=== PATIENT | female | born 1935 | race Two or more races ===

== ENCOUNTER 2018-12-07 11:42 | Emergency (ER) | payer MEDICARE, MEDICAID ==
[~2018-12-07] VITALS: Ht 152.4 cm; Wt 81.6 kg
[2018-12-07 12:00] VITALS: BP 143/70
[2018-12-07] MEDS ORDERED: METHOCARBAMOL 500 MG TAB PO ONE (15:30)
[2018-12-07] MEDS ORDERED: KETOROLAC TROMETH 30 MG/ML 1ML VIAL IM ONE (15:30)
== END 2018-12-07 16:02 | disposition home or self-care (01) ==
LOC: ER 11:42
DX: M54.5 Low back pain (principal); R22.42 Localized swelling, mass and lump, left lower limb; I10 Essential (primary) hypertension; Z87.442 Personal history of urinary calculi
CPT/HCPCS: 93005; 96372; 99283; J1885

== ENCOUNTER 2021-11-12 09:01 | Emergency (ER) | payer MEDICARE, MEDICAID ==
[~2021-11-12] VITALS: Ht 154.9 cm; Wt 86.8 kg
[2021-11-12 09:23] VITALS: BP 180/92
[2021-11-12 10:50] LABS: Urine Bacteria FEW /hpf (None Seen); Urine Blood Negative /uL (Negative); Urine Mucus FEW (None Seen); Urine Specific Gravity 1.022 (1.001-1.035); Urine WBC 6 /hpf (0 - 5)
[2021-11-12] MEDS ORDERED: NITR-87 PO (12:29)
== END 2021-11-12 14:45 | disposition home or self-care (01) ==
LOC: ER 09:01
DX: S46.911A Strain of unspecified muscle, fascia and tendon at shoulder and upper arm level, right arm, initial encounter (principal); S76.011A Strain of muscle, fascia and tendon of right hip, initial encounter; K80.80 Other cholelithiasis without obstruction; N39.0 Urinary tract infection, site not specified; I10 Essential (primary) hypertension; W18.39XA Other fall on same level, initial encounter; Y93.89 Activity, other specified; Y92.89 Other specified places as the place of occurrence of the external cause; Y99.8 Other external cause status
CPT/HCPCS: 70450; 72192; 73030; 81001

== ENCOUNTER 2024-08-26 22:36 | Inpatient (IN) | payer MEDICARE, MEDICAID ==
[~2024-08-26] VITALS: Ht 144.8 cm; Wt 71.3 kg
[~2024-08-26 22:36] MED LIST: NITR-87 PO
[2024-08-27] VITALS (9 sets, daily range): BP systolic 119–169; BP diastolic 57–95; PULSE 54–76; RESP 16–19; TEMP 97.3–97.7; O2SAT 94–97
[2024-08-27] LABS: Basophils # (auto) 0.1 10 ^3/uL (0-0.2); Basophils % (auto) 0.7 % (0.0-2.0); Eosinophils # (auto) 0.1 10 ^3/uL (0-0.8); Eosinophils % (auto) 0.7 % (0.0-7.0); Hematocrit 43.6 % (36.0-46.0); Hemoglobin 14.6 g/dL (12.2-16.2); Lymphocytes # (auto) 1.4 10 ^3/uL (0.4-5.4); Lymphocytes % (auto) 17.7 % (10.0-50.0); Mean Corpuscular Hemoglobin 31.4 pg (28.0-32.0); Mean Corpuscular Hgb Conc. 33.5 g/dL (32.0-36.0); Mean Corpuscular Volume 93.8 fL (80.0-100.0); Monocytes # (auto) 0.5 10 ^3/uL (0-1.3); Monocytes % (auto) 5.7 % (0.0-12.0); Neutrophils % (auto) 75.2 % (37.0-80.0); Platelet Count (auto) 197 10^3/uL (140-450); Red Blood Cells 4.65 10^6/uL (4.0-5.20); Red Cell Distribution Width 13.9 % (11.8-14.3)
--- NOTE | 2024-08-27 00:11 | ED.PDOC ---
History of Present Illness HPI Comments 89-year-old female came to ER due to dizziness. Patient has a history of hypertension. States for the past 3 days she has been having intermittent episodes of frontal headaches, dizziness, and left shoulder pains. Patient took meclizine for the dizziness but offered temporary relief. She denies any acute chest pains or shortness a breath. Blood sugar upon arrival was 147, with a blood pressure of 157/79 mm Hg Chief Complaint: Dizziness Time Seen by MD: 00:10 Primary Care Provider: TRIP Reviewed Notes: Nurses Notes Allergies: Coded Allergies: NO KNOWN ALLERGIES (Unverified , 12/07/18) Home Meds Active Scripts Nitrofurantoin Monohydrate Mac (Macrobid) 100 Mg Cap, 100 MG PO BID for 7 Days, #14 CAP Prov:FLOR LAYTON MD 11/12/21 Information Source: Patient Mode of Arrival: Wheelchair Severity: Moderate Timing: Days Duration: Intermittent Review of Systems REVIEW OF SYSTEMS: No fever, no chills, or fatigue HEENT: No sore throat, no earache, no congestion, no neck pain. Cardiac: No chest pain. No palpitations. Lungs: No shortness of breath, no cough. GI: No nausea, no vomiting, no diarrhea, no constipation, no abdominal pain : No dysuria, frequency, or urgency. No hematuria. Musculoskeletal: No joint pain , no joint swelling, no extremity edema. Skin: No rash, no itching. Neuro: (+) headache, (+) dizziness, no weakness Vital Signs Vital Signs Date Time Temp Pulse Resp B/P (MAP) Pulse Ox O2 Delivery O2 Flow Rate FiO2 08/27/24 00:30 Room Air* 0 21 08/27/24 00:11 71 08/27/24 00:05 98.8 13 157/79 (105) 96 98.8 Physical Exam General: Awake, alert and oriented. No acute distress. Skin: Skin in warm, dry and intact. Appropriate color for ethnicity. Nailbeds pink with no cyanosis. HEENT: The head is normocephalic and atraumatic. Conjunctivae are clear without exudates or hemorrhage. Sclera is non-icteric. EOM are intact. No signs of nystagmus. Eyelids are normal in appearance without swelling or lesions. Oral mucosa is pink and moist Neck: The neck is supple with normal range of motion. No JVD. Cardiac: Heart rate and rhythm are normal. Systolic murmur auscultated loudest over the aortic area Respiratory: No signs of respiratory distress. Lung sounds are clear in all lobes bilaterally without rales, rhonchi, or wheezes. Abdominal: Abdomen is soft, non-tender without distention. Bowel sounds are present and normoactive in all four quadrants. Extremities: Upper and lower extremities are atraumatic in appearance without deformity or edema. Neurological: The patient is awake, alert , there is a generalized tremor noted. Speech is clear. There is no facial asymmetry. Generalized weakness. Strength 4/5 Psychiatric: Appropriate mood and affect. Good judgement and insight. Past Medical History PAST MEDICAL HISTORY: HTN Surgical History: Denies all surgeries ADMISSIONS CONSULTANT History: No Pertinent ADMISSIONS CONSULTANT History Family History Family History: Reviewed,noncontributory to illness Social History Smoker: Non-Smoker Alcohol: Denies ETOH Use Drugs: Denies Drug Use Lives In: Home Was a procedure done? Was a procedure done?: No EKG EKG : Pulse Rate (adult): 71 Cardiac Rhythm: NSR Hypertrophy: LAE Differential Dx Considerations may include: Anemia, electrolyte imbalance, dizziness, headaches, hypovolemia, UTI, neurologic disorder, CVA, vertigo, other X-Ray, Labs, Meds, VS Vital Signs Date Time Temp Pulse Resp B/P (MAP) Pulse Ox O2 Delivery O2 Flow Rate FiO2 08/27/24 00:30 Room Air* 0 21 08/27/24 00:11 71 08/27/24 00:05 98.8 78 13 157/79 (105) 96 98.8 08/26/24 23:10 98.8 78 13 157/79 (105) 96 98.8 Lab Test 08/26/24 23:50 08/26/24 23:28 Range/Units White Blood Count 8.0 4.4-10.8 10^3/uL Red Blood Count 4.65 4.0-5.20 10^6/uL Hemoglobin 14.6 12.2-16.2 g/dL Hematocrit 43.6 36.0-46.0 % Mean Corpuscular Volume 93.8 80.0-100.0 fL Mean Corpuscular Hemoglobin 31.4 28.0-32.0 pg Mean Corpuscular Hemoglobin Concent 33.5 32.0-36.0 g/dL Red Cell Distribution Width 13.9 11.8-14.3 % Platelet Count 197 140-450 10^3/uL Mean Platelet Volume 8.6 6.9-10.8 fL Neutrophils (%) (Auto) 75.2 37.0-80.0 % Lymphocytes (%) (Auto) 17.7 10.0-50.0 % Monocytes (%) (Auto) 5.7 0.0-12.0 % Eosinophils (%) (Auto) 0.7 0.0-7.0 % Basophils (%) (Auto) 0.7 0.0-2.0 % Neutrophils # (Auto) 6.0 1.6-8.6 10 ^3/uL Lymphocytes # (Auto) 1.4 0.4-5.4 10 ^3/uL Monocytes # (Auto) 0.5 0-1.3 10 ^3/uL Eosinophils # (Auto) 0.1 0-0.8 10 ^3/uL Basophils # (Auto) 0.1 0-0.2 10 ^3/uL Nucleated Red Blood Cells 0.0 % Sodium Level 144 136-145 mmol/L Potassium Level 3.8 3.5-5.1 mmol/L Chloride Level 112 H 98-107 mmol/L Carbon Dioxide Level 22 20-31 mmol/L Anion Gap 10 5-15 Blood Urea Nitrogen 21 9-23 mg/dL Creatinine 0.67 0.550-1.02 mg/dL Glomerular Filtration Rate Calc 85 >90 mL/min BUN/Creatinine Ratio 31.3 H 10.0-20.0 Serum Glucose 139 H 74-106 mg/dL Hemoglobin A1c 5.5 <5.7 % A1C Calcium Level 9.0 8.7-10.4 mg/dL Total Bilirubin 0.4 0.2-1.0 mg/dL Aspartate Amino Transferase (AST) 11 L 13-40 U/L Alanine Aminotransferase (ALT) < 9 7-40 U/L Alkaline Phosphatase 68 46-116 U/L Troponin I High Sensitivity 26 </=34 ng/L B-Type Natriuretic Peptide 570.42 0-100 pg/mL Total Protein 6.7 5.7-8.2 g/dL Albumin 4.1 3.2-4.8 g/dL Vitamin B12 Level 371 211-911 pg/mL Folic Acid 6.72 >5.38 ng/mL Thyroid Stimulating Hormone (TSH) 1.39 0.55-4.78 uIU/mL POC Glucose 147 H 70-106 mg/dl Current Medications Medications (Trade) Dose Ordered Sig/Aidee Route Start Time Stop Time Status Last Admin Acetaminophen (Ofirmev) 1,000 mg ONCE ONCE IV 08/26/24 23:45 08/26/24 23:46 DC 08/27/24 00:39 Sodium Chloride 1,000 ml @ 1,000 mls/hr Q1H ONCE IV 08/26/24 23:45 08/27/24 00:44 DC 08/27/24 00:39 CT HEAD WITHOUT CONTRAST INDICATION: Severe headache +dizziness COMPARISON: CT head 11/12/2021 TECHNIQUE: CT of the head without intravenous contrast. RADIATION DOSE: CTDIvol: mGy, DLP: mGy*cm FINDINGS: There is no evidence of intracranial hemorrhage, acute infarct, extra-axial collection, mass effect, midline shift, herniation or hydrocephalus. 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 Prominent sulcal enlargement in the frontal and temporal lobes and vbir-ei-apliobri ventricular enlargement, stable compared to the prior CT scan from October 2021 and related to advanced cerebral volume loss. Visualized paranasal sinuses and mastoid air cells are clear. Soft tissues and osseous structures are unremarkable. IMPRESSION: No acute intracranial abnormality identified. CHEST RADIOGRAPH Indication: cp Technique: Single frontal view of the chest was obtained COMPARISON: None FINDINGS: Lines and Tubes: None Lungs: Clear. Pleura: No effusion. No pneumothorax. Cardiomediastinal contours: Moderate cardiomegaly. IMPRESSION: Moderate cardiomegaly. Time of 1ST Reevaluation: 00:04 Reevaluation 1ST: Unchanged Patient Education/Counseling: Diagnosis, Treatment Family Education/Counseling: Diagnosis, Treatment Departure 1 Departure Time of Disposition: 02:06 Impression: Primary Impression: Dizziness Additional Impressions: Headache Hypertension Generalized weakness Disposition: ADMITTED INPATIENT Condition: Stable Comments Patient admitted to hospitalist service for further treatment, evaluation and monitoring. Critical Care Note Critical Care Time?: No Stability Stability form required: No Heart Score Heart Score: Heart Score Response (Comments) Value History N/A 0 EKG N/A 0 Age N/A 0 Risk Factors N/A 0 Troponin N/A 0 Total 0 I personally scribed for JONY MAHMOOD MD ([email or web address]) on 08/27/24 at 00:11. Electronically submitted by Marco Antonio Stevenson ([email or web address]). I personally scribed for JONY MAHMOOD MD ([email or web address]) on 08/27/24 at 01:26. Electronically submitted by Marco Antonio Stevenson ([email or web address]). JONY MAHMOOD MD August 27, 2024 00:11
[2024-08-27 00:19] LABS: Albumin 4.1 g/dL (3.2-4.8); Alkaline Phosphatase 68 U/L (46-116); Anion Gap 10 (5-15); BUN/Creatinine Ratio 31.3 (10.0-20.0); Blood Urea Nitrogen 21 mg/dL (9-23); Carbon Dioxide 22 mmol/L (20-31); Potassium 3.8 mmol/L (3.5-5.1); Sodium 144 mmol/L (136-145); Total Protein 6.7 g/dL (5.7-8.2)
[2024-08-27 00:20] LABS: Bilirubin, Total 0.4 mg/dL (0.2-1.0)
[2024-08-27 00:24] LABS: Alanine Aminotransferase < 9 U/L (7-40); Aspartate Aminotransferase 11 U/L (13-40); Chloride 112 mmol/L (98-107); Glucose 139 mg/dL (74-106)
--- NOTE | 2024-08-27 00:29 | DVH ---
CT HEAD WITHOUT CONTRAST INDICATION: Severe headache +dizziness COMPARISON: CT head 11/12/2021 TECHNIQUE: CT of the head without intravenous contrast. RADIATION DOSE: CTDIvol: mGy, DLP: mGy*cm FINDINGS: There is no evidence of intracranial hemorrhage, acute infarct, extra-axial collection, mass effect, midline shift, herniation or hydrocephalus. Evidence of small old lacunar infarcts in bilateral thal amus and mild chronic white matter microvascular ischemic change. Prominent sulcal enlargement in the frontal and temporal lobes and wdil-uf-mjiugqgo ventricular enlargement, stable compared to the prio r CT scan from October 2021 and related to advanced cerebral volume loss. Visualized paranasal sinuses a nd mastoid air cells are clear. Soft tissues and osseous structures are unremarkable. IMPRESSION: No acute intracranial abnormality identified.
--- NOTE | 2024-08-27 00:33 | DVH ---
CHEST RADIOGRAPH Indication: cp Technique: Single frontal view of the chest was obtained COMPARISON: None FINDINGS: Lines and Tubes: None Lungs: Clear. Pleura: No effusion. No pneumothorax. Cardiomediastinal contours: Moderate cardiomegaly. IMPRESSION: Moderate cardiomegaly.
[2024-08-27] MEDS: SODIUM CHLORIDE 0.9% 1,000 ML IV ONE ×2 (00:39→12:22)
[2024-08-27] MEDS: ACETAMINOPHEN IV 1000 MG/100ML (10MG/ML) IV ONE (00:39)
[2024-08-27] MEDS ORDERED: NITROGLYCERIN 0.4 MG SL TAB SL PRN (02:30)
[2024-08-27] MEDS ORDERED: ONDANSETRON HCL 4 MG/2 ML VIAL IV PRN (02:30)
[2024-08-27] MEDS ORDERED: PANTOPRAZOLE 40 MG TAB PO ONE (02:30)
[2024-08-27] MEDS ORDERED: DOCUSATE SOD 100 MG CAP PO PRN (02:30)
[2024-08-27] MEDS ORDERED: MORPHINE SULFATE INJ 2 MG/ml SYRG IV PRN (02:30)
--- NOTE | 2024-08-27 02:55 | DVHHP2 ---
History of Present Illness History of Present Illness Patient is 89 years old female with past medical hypertension came with a complaint of dizziness. As per patient and her grandson patient has been having dizzy for last 1 month but which got worse for last almost 7 days. Dizziness is worsened when moving around or walking around. Dizziness was associated with a headache, 10/10, pulsatile in nature. Patient also endorsed chronic bilateral leg swelling for years. Patient was taking meclizine but did not help. Patient denied any dysarthria or change in vision or hemiparesis chest pain no shortness a breath acute joint pain or redness or diarrhea or vomiting. BNP 570, CT head negative for acute intracranial abnormality. Chest x-ray no acute abnormality noted. Negative for COVID-19 and influenza type a and B. HH 1.39, HGB A1c 5.5. PCP Dr. Khadar peguero Past Medical History Hypertension Family History Patient could not provide details of the family history Past Social History Lives with daughter, denies smoking/alcoholism/drug abuse Home meds lisinopril, amlodipine, meclizine Review of Systems Review of Systems Allergy-NKDA Patient was seen today at the bedside. Cardiovascular- deny acute chest pain or shortness of breath or cough or palpitation Respiratory denies cough or short of breath or wheezing Gastrointestinal- denies any rectal bleeding, nausea or vomiting Musculoskeletal-denies acute joint swelling or tenderness or redness Neurological- denies acute dysarthria, dysphagia, change in vision Psychiatry- denies depression or SI or HI Skin- denies acute rash or purpura Allergies: Coded Allergies: NO KNOWN ALLERGIES (Unverified , 12/07/18) Medications Current Medications Medications Dose Ordered Sig/Aidee Route Start Time Stop Time Status Last Admin Dose Admin Sodium Chloride 10 ml Q8HR IV 08/27/24 06:00 Ondansetron HCl 4 mg Q4HP PRN IV 08/27/24 02:30 Docusate Sodium 100 mg BIDPRN PRN PO 08/27/24 02:30 Enoxaparin Sodium 40 mg DAILY SC 08/27/24 10:00 Acetaminophen 650 mg Q6HP PRN PO 08/27/24 02:30 Morphine Sulfate 2 mg Q4HPRN PRN IV 08/27/24 02:30 Nitroglycerin 0.4 mg Q5MINP PRN SL 08/27/24 02:30 Morphine Sulfate 2 mg Q30M PRN IV 08/27/24 02:30 Aspirin 81 mg DAILY PO 08/27/24 10:00 Atorvastatin Calcium 40 mg HS PO 08/27/24 22:00 Pantoprazole Sodium 40 mg DAILY@0600 PO 08/27/24 06:00 Exam Vital Signs Vital Signs Date Time Temp Pulse Resp B/P (MAP) Pulse Ox O2 Delivery O2 Flow Rate FiO2 08/27/24 00:30 Room Air* 0 21 08/27/24 00:11 71 08/27/24 00:05 98.8 13 157/79 (105) 96 98.8 Exam General examination- awake, alert, oriented HEENT- PEERLA, no acute nasal discharge Cardiovascular- S1-S2 audible, rate and rhythm regular, systolic murmur radiating to the neck Respiratory- CTAB, no wheeze or rhonchi Gastrointestinal-nontender, bowel sound+. Nondistended Musculoskeletal-no acute joint swelling or tenderness or redness Lower extremity- + bilateral leg edema Neurological- cranial nerves intact, no acute dysarthria or dysphagia Psychiatry- denies depression or SI or HI Skin- no acute rash or purpura Labs/Xrays Labs Test 08/26/24 23:50 08/26/24 23:28 Range/Units White Blood Count 8.0 4.4-10.8 10^3/uL Red Blood Count 4.65 4.0-5.20 10^6/uL Hemoglobin 14.6 12.2-16.2 g/dL Hematocrit 43.6 36.0-46.0 % Mean Corpuscular Volume 93.8 80.0-100.0 fL Mean Corpuscular Hemoglobin 31.4 28.0-32.0 pg Mean Corpuscular Hemoglobin Concent 33.5 32.0-36.0 g/dL Red Cell Distribution Width 13.9 11.8-14.3 % Platelet Count 197 140-450 10^3/uL Mean Platelet Volume 8.6 6.9-10.8 fL Neutrophils (%) (Auto) 75.2 37.0-80.0 % Lymphocytes (%) (Auto) 17.7 10.0-50.0 % Monocytes (%) (Auto) 5.7 0.0-12.0 % Eosinophils (%) (Auto) 0.7 0.0-7.0 % Basophils (%) (Auto) 0.7 0.0-2.0 % Neutrophils # (Auto) 6.0 1.6-8.6 10 ^3/uL Lymphocytes # (Auto) 1.4 0.4-5.4 10 ^3/uL Monocytes # (Auto) 0.5 0-1.3 10 ^3/uL Eosinophils # (Auto) 0.1 0-0.8 10 ^3/uL Basophils # (Auto) 0.1 0-0.2 10 ^3/uL Nucleated Red Blood Cells 0.0 % Sodium Level 144 136-145 mmol/L Potassium Level 3.8 3.5-5.1 mmol/L Chloride Level 112 H 98-107 mmol/L Carbon Dioxide Level 22 20-31 mmol/L Anion Gap 10 5-15 Blood Urea Nitrogen 21 9-23 mg/dL Creatinine 0.67 0.550-1.02 mg/dL Glomerular Filtration Rate Calc 85 >90 mL/min BUN/Creatinine Ratio 31.3 H 10.0-20.0 Serum Glucose 139 H 74-106 mg/dL Calcium Level 9.0 8.7-10.4 mg/dL Total Bilirubin 0.4 0.2-1.0 mg/dL Aspartate Amino Transferase (AST) 11 L 13-40 U/L Alanine Aminotransferase (ALT) < 9 7-40 U/L Alkaline Phosphatase 68 46-116 U/L Troponin I High Sensitivity 26 </=34 ng/L B-Type Natriuretic Peptide 570.42 0-100 pg/mL Total Protein 6.7 5.7-8.2 g/dL Albumin 4.1 3.2-4.8 g/dL POC Glucose 147 H 70-106 mg/dl Assessment/Plan Assessment/Plan Assessment and plan Acute dizziness headache, rule out acute stroke Ruled out Cardiac arrhythmia Rule out Orthostatic hypotension or hypoglycemia or BPPV Heart failure systolic versus diastolic-BNP [address] head negative for acute intracranial abnormality Chest x-ray no acute abnormality Plan Ordered aspirin 81 mg p.o. daily Ordered atorvastatin 40 mg p.o. q.h.s. Ordered MRI of the brain to rule out acute stroke Ordered Carotid Doppler Ordered Echo 2D Ordered Orthostatic vitals Ordered neurology consult for further evaluation and care PCP Dr. Khadar peguero Goals of care, Code status ; discussed with >15 minutes PUD prophylaxis: Pantoprazole DVT prophylaxis: Lovenox Plan discussed with Dr. Forte , nursing staff, Total time spent on patient evaluation, chart review, assessment and plan, discussion discussion >35 minutes Plan discussed with: Patient, Other ( grand Son, RN) My Orders Orders - [facility] RES[facility] Procedure Category Date Status Time Admit ADMIT 08/27/24 Transmitted 02:21 Code Status CODE 08/27/24 Transmitted 02:21 Sodium Chloride Lock PHA 08/27/24 In Process (Saline Lock Ns) 06:00 Ondansetron Hcl PHA 08/27/24 In Process (Zofran) 02:30 Docusate Sodium PHA 08/27/24 In Process Capsule (Colace 02:30 Enoxaparin Sodium PHA 08/27/24 In Process (Lovenox) 10:00 Complete Blood Count LAB 08/28/24 Verified 04:00 Comprehensive LAB 08/28/24 Verified Metabolic Panel 04:00 Echo 2d Mode Cardiac US 08/27/24 Logged DOP 02:21 Acetaminophen Tablet PHA 08/27/24 In Process (Tylenol Tablet) 02:30 Morphine Sulfate PHA 08/27/24 In Process Injection 02:30 Nitroglycerin PHA 08/27/24 In Process Sublingual (Ntrostat 02:30 Morphine Sulfate PHA 08/27/24 In Process Injection 02:30 Oxygen By Nasal RT 08/27/24 Transmitted Cannula 02:21 Stat Ekg For Chest JOSIAS 08/27/24 In Process Pain 02:21 Notify Of Changes JOSIAS 08/27/24 In Process From Base 02:21 Police Judge For JOSIAS 08/27/24 In Process 24 Hours 02:21 Emergency Dysrhythmia JOSIAS 08/27/24 In Process Protocol 02:21 Rhythm Strips Once JOSIAS 08/27/24 In Process Every Shift 02:21 Aspirin Tablet PHA 08/27/24 In Process 10:00 Atorvastatin (Lipitor) PHA 08/27/24 In Process 22:00 Pantoprazole Tablet PHA 08/27/24 In Process (Protonix Tablet) 06:00 Orthostatic Vital ORDERS 08/27/24 Transmitted Signs 02:29 Drug Screen LAB 08/27/24 Logged 02:29 Thyroid Stimulating LAB 08/27/24 In Process Hormone 02:29 Brain Head Wo Contrast MRI 08/27/24 Transmitted 02:45 Carotid Duplx W Color US 08/27/24 Transmitted DOP 02:45 Date of Service: August 27, 2024 Billing Provider: MILLIE FORTE MD Common Visit Codes: [id number] INP/OBS CARE (HIGH) Secondary Visit Codes: [id number] CARE PLAN 30 MINUTES [facility] RES[facility] August 27, 2024 02:55
[2024-08-27] MEDS ORDERED: hydrALAZINE HCL 20 MG/ML VL IV PRN (03:00)
[2024-08-27] MEDS: ASPirin 81 mg TAB PO ONE (03:16)
[2024-08-27] MEDS: ATORVASTATIN 20 MG TAB PO ONE (03:18)
[2024-08-27 03:27] LABS: Folate (Folic Acid) 6.72 ng/mL (>5.38)
[2024-08-27 05:05] LABS: COVID19 ANTIGEN SOFIA FIA NEGATIVE (NEGATIVE); Rapid Influenza A Negative (Negative); Rapid Influenza B Negative (Negative)
[2024-08-27] MEDS: PANTOPRAZOLE 40 MG TAB PO SCH (06:52)
[2024-08-27] MEDS: SODIUM CHLOR 0.9% PF (SALINE LOCK) 10ML VIAL/SYR IV SCH (06:52)
[2024-08-27 08:38] LABS: Basophils # (auto) 0 10 ^3/uL (0-0.2); Basophils % (auto) 0.3 % (0.0-2.0); Eosinophils # (auto) 0.1 10 ^3/uL (0-0.8); Eosinophils % (auto) 1.3 % (0.0-7.0); Hematocrit 38.9 % (36.0-46.0); Hemoglobin 13.1 g/dL (12.2-16.2); Lymphocytes # (auto) 1.8 10 ^3/uL (0.4-5.4); Mean Corpuscular Hemoglobin 31.5 pg (28.0-32.0); Mean Corpuscular Hgb Conc. 33.6 g/dL (32.0-36.0); Mean Corpuscular Volume 93.7 fL (80.0-100.0); Monocytes # (auto) 0.4 10 ^3/uL (0-1.3); Monocytes % (auto) 5.8 % (0.0-12.0); Neutrophils # (auto) 4.5 10 ^3/uL (1.6-8.6); Neutrophils % (auto) 66.6 % (37.0-80.0); Nucleated Red Blood Cells % 0.1 %; Platelet Count (auto) 189 10^3/uL (140-450); Red Blood Cells 4.15 10^6/uL (4.0-5.20); Red Cell Distribution Width 13.5 % (11.8-14.3); White Blood Cell 6.8 10^3/uL (4.4-10.8)
[2024-08-27] MEDS: CYANOCOBALAMIN (B-12) 1000 MCG/1 ML VIAL IM ONE (08:50)
[2024-08-27] MEDS: ASPirin 81 mg TAB PO SCH (08:50)
[2024-08-27] MEDS: ENOXAPARIN SOD 40 MG/0.4 ML SYRINGE SC SCH (08:51)
[2024-08-27 08:53] LABS: Albumin 3.5 g/dL (3.2-4.8); Alkaline Phosphatase 60 U/L (46-116); Anion Gap 9 (5-15); BUN/Creatinine Ratio 35.8 (10.0-20.0); Bilirubin, Total 0.5 mg/dL (0.2-1.0); Blood Urea Nitrogen 19 mg/dL (9-23); Calcium 9.2 mg/dL (8.7-10.4); Carbon Dioxide 22 mmol/L (20-31); Glucose 101 mg/dL (74-106); Magnesium 1.9 mg/dL (1.6-2.6); Potassium 3.8 mmol/L (3.5-5.1); Sodium 144 mmol/L (136-145)
[2024-08-27 08:59] LABS: Alanine Aminotransferase < 9 U/L (7-40); Aspartate Aminotransferase 13 U/L (13-40); Chloride 113 mmol/L (98-107)
--- NOTE | 2024-08-27 11:06 | DVH ---
Carotid Duplex Date: 08/27/2024 08:16 AM Clinical History: HEADACHE WITH DIZZINESS, Comparison: None Technique: Duplex Doppler evaluation of the extracranial carotid and vertebral arteries including col or Doppler and spectral/pulsed waveform analysis was performed. Findings: Velocities and ratios within normal limits IMPRESSION: No hemodynamically significant stenosis noted in the right carotid system. No hemodynamically significant stenosis noted in the left carotid system. Reference: Radiology 2003; 229:[id number]
[2024-08-27] MEDS ORDERED: MECLIZINE HCL 25 MG TAB PO PRN (11:45)
[2024-08-27 11:50] LABS: Urine Bacteria None Seen /hpf (None Seen)
[2024-08-27 12:01] LABS: Urine Blood Negative /uL (Negative); Urine Clarity Clear (Clear); Urine Color Light-Yellow (Yellow); Urine Protein, UAD Negative (Negative); Urine Specific Gravity 1.025 (1.001-1.035); Urine Squamous Epithelial Cell FEW /hpf (<5); Urine Urobilinogen Normal (Negative); Urine WBC 2 /HPF (0-5); Urine pH 5.5 (5.0-9.0)
[2024-08-27 12:18] LABS: Amphetamine Screen, Urine Neg (NEGATIVE); Barbiturate Scree,Urine Neg (NEGATIVE); Benzodiazephine Screen, Urine Neg (NEGATIVE); Cannabinoid Screen, Urine Neg (NEGATIVE); Cocaine Screen, Urine Neg (NEGATIVE); Opiate Scree,Urine Neg (NEGATIVE); Phencyclidine Screen, Urine Neg (NEGATIVE)
--- NOTE | 2024-08-27 12:44 | DVHPNRES ---
Progress Note Date Seen: August 27, 2024 Resident Creating Document: CUONG REDD RESIDENT Medical Necessity Reason Pt with a Central, PICC or Fol: No Subjective Review of Systems Jenifer Kaye a 89 years old female with a PMH of HTN presented to the ED with the complaints of ongoing dizziness for past 2 months. As per patient and her grandson patient has been having dizzy for last 1 month but which got worse for last almost 7 days. Dizziness is worsened when moving around or walking around. Dizziness was associated with a headache, 10/10, pulsatile in nature. Patient seen and examined at the bedside. Patient reported no active complaints except dizziness. Head CT showed no acute changes, ordered head MRI. Ordered orthostatic vitals and EKG. Patient reports: Feels better Objective vital signs Vital Sign Date Time Temp Pulse Resp B/P (MAP) Pulse Ox O2 Delivery O2 Flow Rate FiO2 08/27/24 10:42 58 08/27/24 06:00 16 147/48 (81) 96 08/27/24 04:37 97.4 97.4 08/27/24 00:30 Room Air* 0 21 Total Intake and Output 08/26/24 08/26/24 08/27/24 15:00 23:00 07:00 Intake Total 1000 ml Balance 1000 ml medications Current Medications Medications Dose Ordered Sig/Aidee Route Start Time Stop Time Status Last Admin Dose Admin Sodium Chloride 10 ml Q8HR IV 08/27/24 06:00 08/27/24 06:52 10 ML Ondansetron HCl 4 mg Q4HP PRN IV 08/27/24 02:30 Docusate Sodium 100 mg BIDPRN PRN PO 08/27/24 02:30 Enoxaparin Sodium 40 mg DAILY SC 08/27/24 10:00 08/27/24 08:51 40 MG Acetaminophen 650 mg Q6HP PRN PO 08/27/24 02:30 Morphine Sulfate 2 mg Q4HPRN PRN IV 08/27/24 02:30 Nitroglycerin 0.4 mg Q5MINP PRN SL 08/27/24 02:30 Morphine Sulfate 2 mg Q30M PRN IV 08/27/24 02:30 Aspirin 81 mg DAILY PO 08/27/24 10:00 08/27/24 08:50 81 MG Atorvastatin Calcium 40 mg HS PO 08/27/24 22:00 Pantoprazole Sodium 40 mg DAILY@0600 PO 08/27/24 06:00 08/27/24 06:52 40 MG Hydralazine HCl 10 mg Q6HP PRN IV 08/27/24 03:00 Examination Pt is lying on bed General Appearance: Alert, Oriented X3, Cooperative, Not in acute distress HEENT: Atraumatic, Mucous membranes moist/pink Respiratory: Clear to auscultation, Normal air movement, No added sounds Cardiovascular: Regular rate, Normal S1, Normal S2, No murmurs Abdominal: Active bowel sounds, Soft, no distention, no tenderness Extremities: No edema, Normal pulses, No tenderness/swelling Skin: No Significant rash, except past surgical scars Neuro: Normal speech, sensorimotor deficits none Psych/Mental Status: Mental status NL, Mood NL Nurse was there as duanene during examination laboratory and microbiology Laboratory Tests 08/27/24 08:12 Test 08/27/24 08:12 Range/Units Serum Glucose 101 74-106 mg/dL Labs and/or images reviewed: Labs reviewed by me, Image(s) reviewed by me Problem List/Assessment/Plan Problem List/Assessment/Plan # Dizziness likely poly pharmacy vs Arrhythmias vs dehydration # Orthostatic hypotension # rule out acute CVA - telemetry - head CT is showed no acute abnormalities - brain MRI pending - carotid Doppler - orthostatic vitals - meclizine b.i.d. - prochlorperazine b.i.d. p.r.n. - EKG - IVF - unable to do maneuvers due to given age and back, neck ache - Neuro consult for further evaluation # Sys vs bertram CHF likely ? exacerbation - elevated BNP - ordered 2D echo # uncontrolled hypertension/ hypertensive urgency - continuously monitor blood pressure - hydralazine p.r.n. Protonix Lovenox Cardiac diet Goals of care discussed with the patient for more than 29 minutes: Full code status Case discussed with Dr. [place], patient and nurse Plan discussed with: Patient My Orders My Orders Orders - [facility]D RESIDENT Procedure Category Date Status Time Orthostatic Vital ORDERS 08/27/24 Transmitted Signs 08:03 Sodium Chloride 0.9% PHA 08/27/24 In Process 11:45 Meclizine Tablet PHA 08/27/24 In Process (Antivert Tablet) 11:45 Prochlorperazine PHA 08/27/24 Transmitted Tablet (Compazine 12:45 [facility]D RESIDENT August 27, 2024 12:44
[2024-08-27] MEDS ORDERED: PROCHLORPERAZINE MALEATE 10 MG TAB PO PRN (12:45)
--- NOTE | 2024-08-27 12:47 | DVH ---
PROCEDURE: MRI BRAIN HEAD WO CONTRAST INDICATION: HEADACHE WITH DIZZINESS EXAM DATE: 08/27/2024 10:59 AM COMPARISON: Head CT 08/26/2024 and 11/12/2021 TECHNIQUE: MRI of the brain without intravenous contrast. FINDINGS: Questionable punctate focus of restricted diffusion in the right occipital lobe. There is no evidence of acute intracranial hemorrhage, mass effect, midline shift, herniation or hyd rocephalus. Moderate cerebral atrophy with a frontal temporal distribution. Bilateral frontal extra-axial collec tions measuring up to 15 mm on the right and 13 mm on the left. Moderate changes of chronic microvascular ischemic disease with involvement of the song. Few scattered foci of blooming artifact. The major vascular flow voids are present. Mucous retention cyst right maxillary sinus. The surrounding soft tissues and osseous structures are unremarkable. IMPRESSION: 1. Questionable punctate focus of restricted diffusion in the right occipital cortex. A tiny infarct is not excluded. Clinical correlation and continued follow-up is recommended. 2. Moderate cerebral atrophy with a frontotemporal distribution similar to prior exams. Bifrontal ext ra-axial fluid collections measuring up to 15 mm on the right and 13 mm on the left unchanged. 3. Moderate changes of chronic microvascular ischemic disease with involvement of the song. 4. Few scattered foci blooming artifact, could be due to microangiopathy. Clinical correlation and c ontinued follow-up is recommended. HS:Y
--- NOTE | 2024-08-27 13:41 | ECG ---
[facility] Test Date: 2024-08-26 Test Time: 23:47:07 Pat Name: VIANNEY HENDERSON Department: ER Room: 0278T Gender: F Energy Efficiency Specialist: AGGIE : 1935 Requested By: JONY MAHMOOD Order Number: [id number] Reading MD: Measurements Intervals [place] Rate: 69 P: 62 VA: 177 QRS: -61 QRSD: 192 T: 121 QT: 460 QTc: 493 Interpretive Statements Sinus rhythm Ventricular premature complex Consider right atrial enlargement IVCD, consider atypical RBBB LVH with secondary repolarization abnormality Inferior infarct, old Probable anterior infarct, age indeterminate Baseline wander in lead(s) V4,V5 Please click the below link to view image of tracing.
--- NOTE | 2024-08-27 14:13 | ECG ---
[facility] Test Date: 2024-08-26 Test Time: 23:47:49 Pat Name: VIANNEY HENDERSON Department: ER Room: [facility]8T A Gender: F Staff Training And Development Manager: AGGIE : 1935 Requested By: JONY MAHMOOD Order Number: [id number] Reading MD: Measurements Intervals [place] Rate: 68 P: 73 MA: 162 QRS: -55 QRSD: 147 T: 101 QT: 417 QTc: 444 Interpretive Statements Sinus rhythm Probable left atrial enlargement RBBB and LAFB Left ventricular hypertrophy Please click the below link to view image of tracing.
[2024-08-27] MEDS: MORPHINE SULFATE INJ 2 MG/ml SYRG IV PRN (14:42)
[2024-08-27] MEDS: ATORVASTATIN 20 MG TAB PO SCH (22:41)
[2024-08-28] VITALS (8 sets, daily range): BP systolic 110–165; BP diastolic 42–87; PULSE 48–78; RESP 16–20; TEMP 97.3–97.9; O2SAT 94–97
[2024-08-28 07:44] LABS: Basophils # (auto) 0 10 ^3/uL (0-0.2); Basophils % (auto) 0.3 % (0.0-2.0); Eosinophils # (auto) 0.1 10 ^3/uL (0-0.8); Eosinophils % (auto) 1.8 % (0.0-7.0); Hematocrit 38.8 % (36.0-46.0); Hemoglobin 13.3 g/dL (12.2-16.2); Lymphocytes # (auto) 1.5 10 ^3/uL (0.4-5.4); Lymphocytes % (auto) 21.1 % (10.0-50.0); Mean Corpuscular Hgb Conc. 34.3 g/dL (32.0-36.0); Mean Corpuscular Volume 93.4 fL (80.0-100.0); Monocytes # (auto) 0.3 10 ^3/uL (0-1.3); Monocytes % (auto) 4.4 % (0.0-12.0); Neutrophils % (auto) 72.4 % (37.0-80.0); Nucleated Red Blood Cells % 0.1 %; Platelet Count (auto) 181 10^3/uL (140-450); Red Blood Cells 4.16 10^6/uL (4.0-5.20); Red Cell Distribution Width 13.3 % (11.8-14.3); White Blood Cell 6.9 10^3/uL (4.4-10.8)
[2024-08-28 08:05] LABS: Albumin 3.4 g/dL (3.2-4.8); Alkaline Phosphatase 60 U/L (46-116); Anion Gap 9 (5-15); Aspartate Aminotransferase 13 U/L (13-40); BUN/Creatinine Ratio 24.4 (10.0-20.0); Blood Urea Nitrogen 11 mg/dL (9-23); Calcium 9.4 mg/dL (8.7-10.4); Carbon Dioxide 22 mmol/L (20-31); Glucose 98 mg/dL (74-106); Potassium 3.7 mmol/L (3.5-5.1); Sodium 140 mmol/L (136-145); Total Protein 5.7 g/dL (5.7-8.2)
[2024-08-28 08:06] LABS: Bilirubin, Total 0.8 mg/dL (0.2-1.0)
[2024-08-28 08:08] LABS: Alanine Aminotransferase 9 U/L (7-40); Chloride 109 mmol/L (98-107)
--- NOTE | 2024-08-28 18:20 | DVHPN2 ---
Subjective 08/28 - patient here for dizziness. Improving, patient wants to leave but not stable for discharge today.. MRI negative, concern for stroke lower. TI possible we will have to monitor another 24 hours as precaution for impending CVA. We will continue q.4 H neuro checks. Orthostatics are negative. Patient was ambulating improve. We will continue to give meclizine as p.r.n. for dizziness. Slow IV fluids overnight. We will re-evaluate tomorrow a.m.. Possible DC tomorrow. Reviewed: H&P Changes from previous H/P or p: No Changes General: Per HPI Objective Vitals Vital Signs Date Time Temp Pulse Resp B/P (MAP) Pulse Ox O2 Delivery O2 Flow Rate FiO2 08/28/24 17:00 130/54 (79) 08/28/24 17:00 97.9 50 18 96 97.9 08/28/24 08:00 Room Air* 0 21 Intake/Output Intake and Output 08/28/24 07:00 Intake Total 600 ml Balance 600 ml Intake Oral 100 ml IV Total 500 ml # Voids 3 Exam General Appearance: Alert, Oriented X3, Cooperative, Not in acute distress HEENT: Atraumatic, Mucous membranes moist/pink Respiratory: Clear to auscultation, Normal air movement, No added sounds Cardiovascular: Regular rate, Normal S1, Normal S2, No murmurs Abdominal: Active bowel sounds, Soft, no distention, no tenderness Extremities: No edema, Normal pulses, No tenderness/swelling Skin: No Significant rash, except past surgical scars Neuro: Normal speech, sensorimotor deficits none Psych/Mental Status: Mental status NL, Mood NL Medications Current Medications Medications Dose Ordered Sig/Aidee Route Start Time Stop Time Status Last Admin Dose Admin Sodium Chloride 10 ml Q8HR IV 08/27/24 06:00 08/28/24 15:44 10 ML Ondansetron HCl 4 mg Q4HP PRN IV 08/27/24 02:30 Docusate Sodium 100 mg BIDPRN PRN PO 08/27/24 02:30 Enoxaparin Sodium 40 mg DAILY SC 08/27/24 10:00 08/28/24 09:54 40 MG Acetaminophen 650 mg Q6HP PRN PO 08/27/24 02:30 Morphine Sulfate 2 mg Q4HPRN PRN IV 08/27/24 02:30 08/27/24 22:43 2 MG Nitroglycerin 0.4 mg Q5MINP PRN SL 08/27/24 02:30 Morphine Sulfate 2 mg Q30M PRN IV 08/27/24 02:30 Aspirin 81 mg DAILY PO 08/27/24 10:00 08/28/24 09:53 81 MG Atorvastatin Calcium 40 mg HS PO 08/27/24 22:00 08/27/24 22:41 40 MG Pantoprazole Sodium 40 mg DAILY@0600 PO 08/27/24 06:00 08/28/24 06:00 40 MG Hydralazine HCl 10 mg Q6HP PRN IV 08/27/24 03:00 Meclizine HCl 12.5 mg [id number] PRN PO 08/27/24 11:45 Prochlorperazine Maleate 5 mg BID PRN PO 08/27/24 12:45 Laboratory Results Laboratory Tests 08/28/24 06:51 Chemistry Test 08/28/24 06:51 Albumin 3.4 g/dL (3.2-4.8) Calcium Level 9.4 mg/dL (8.7-10.4) Total Protein 5.7 g/dL (5.7-8.2) LFT Test 08/28/24 06:51 Alanine Aminotransferase (ALT) 9 U/L (7-40) Alkaline Phosphatase 60 U/L (46-116) Aspartate Amino Transferase (AST) 13 U/L (13-40) Total Bilirubin 0.8 mg/dL (0.2-1.0) Urinalysis Test 08/27/24 10:00 Urine Color Light-yellow (Yellow) Urine Clarity Clear (Clear) Urine pH 5.5 (5.0-9.0) Urine Specific [place] [employer] 1.025 (1.001-1.035) Urine Protein Negative (Negative) Urine Ketones Negative (Negative) Urine Blood Negative /uL (Negative) Urine Nitrite Negative (Negative) Urine Bilirubin Negative (Negative) Urine Urobilinogen Normal mg/dL (Negative) Urine Leukocyte Esterase Negative /uL (Negative) Urine RBC 1 /hpf (0 - 4) Urine Microscopic WBC 2 /HPF (0-5) Urine Squamous Epithelial Cells Few /hpf (<5) Urine Bacteria None seen /hpf (None Seen) Urine Glucose Normal mg/dL (Normal) Labs and/or images reviewed: Labs reviewed by me, Image(s) reviewed by me Assessment/Plan Assessment/Plan 08/28 - patient here for dizziness. Improving, patient wants to leave but not stable for discharge today.. MRI negative, concern for stroke lower. TI possible we will have to monitor another 24 hours as precaution for impending CVA. We will continue q.4 H neuro checks. Orthostatics are negative. Patient was ambulating improve. We will continue to give meclizine as p.r.n. for dizziness. Slow IV fluids overnight. We will re-evaluate tomorrow a.m.. Possible DC tomorrow. # Dizziness likely poly pharmacy vs Arrhythmias vs dehydration # Orthostatic hypotension # rule out acute CVA - telemetry - head CT is showed no acute abnormalities - brain MRI neg for cva - carotid Doppler - orthostatic vitals - meclizine b.i.d. - prochlorperazine b.i.d. p.r.n. - EKG - IVF - unable to do maneuvers due to given age and back, neck ache - Neuro consult for further evaluation # Sys vs bertram CHF likely ? exacerbation - elevated BNP - ordered 2D echo # uncontrolled hypertension/ hypertensive urgency - continuously monitor blood pressure - hydralazine p.r.n. Protonix Lovenox Cardiac diet Plan discussed with: Patient, Other Date of Service: August 28, 2024 Billing Provider: LIZBET MAX MD Common Visit Codes: [id number] INP/OBS CARE(HIGH) LIZBET MAX MD August 28, 2024 18:20
[2024-08-28] MEDS: LACTATED RINGER'S 1,000 ML IV ONE (20:39)
[2024-08-29 00:52] VITALS: BP 132/60; PULSE 56; RESP 20; TEMP 97.7; O2SAT 92
--- NOTE | 2024-08-29 02:31 | DVHSR ---
APPROVED REPORT EXAM: Two-dimensional and M-mode echocardiogram with Doppler and color Doppler. Blood Pressure: 147/48 mmHg INDICATION Rule out valvuar heart disease or wall motion abnormalities RISK FACTORS Height: 55, Weight: 191 DIMENSIONS LVDd (3.8-5.7cm)LA (2D)4.8 (1.9-4.0cm)Aortic Root3.4 (2.0-3.7cm) LVDs (2.5-4.0cm)LA (MM) (1.9-4.0cm)Aortic Cusp Exc0.9 (1.5-2.0cm) EF (%) 60.0 (55-70%)Rt. Atrium4.0 (1.9-4.0cm)Asc. Aorta cm Mitral Valve MitralMitral Stenosis E wave0.77m/sMV Mean GR.mmHg A wave1.39m/sMV Peak GR.139mmHg E/A ratio0.62D MVAcm2 DECEL [id number] 1/2 [id number] IVRTmsDop MVA1.16cm2 Aortic Valve Aortic ValveAortic Stenosis V1m/Terrie Mean GR.82mmHg V25.58m/Terrie Peak GR.123mmHg LVOT Diameter2.3 (1.8-2.4cm)Doppler AVAcm2 Other Information Technically limited study due to body habitus. Conclusion SEVERE LVH AND MODERATE DEGREE LV DIASTOLIC DYSFUNCTION MODERATELY DILATED LA LV EF IS 65% AND IS NORMAL VERY HEAVILY CALCIFIED POSTERIOR MITRAL LEAFLET WITH DECREASED EXCURSION VERY HEAVILY CALCIFIED AORTIC LEAFLETS SIGNIFICANTLY DECREASED EXCURSION OF AORTIC LEAFLETS PEAK AORTIC GRADIENT IS 136 MM OF HG AND MEAN GRADIENT IS 82 MM OF HG IT S CRITICAL AORTIC STENOSIS NO EFFUSION
[2024-08-29 05:00] VITALS: BP 144/58; PULSE 51; RESP 18; TEMP 97.9; O2SAT 98
[2024-08-29 08:00] VITALS: PULSE 51
[2024-08-29 09:00] VITALS: BP 130/67; PULSE 72; RESP 20; TEMP 98; O2SAT 98
[2024-08-29] MEDS: ACETAMINOPHEN 325 MG TAB PO PRN (09:20)
[2024-08-29 13:00] VITALS: BP 137/56; PULSE 52; RESP 20; TEMP 98; O2SAT 97
[2024-08-29] MEDS ORDERED: MECL-90 PO (13:49)
[2024-08-29] MEDS ORDERED: ASPI-325 PO (13:50)
[2024-08-29] MEDS ORDERED: ATOR20TA50 PO (13:50)
--- NOTE | 2024-08-29 13:53 | DVHDSRES ---
Discharge Summary Date of Admission Resident Creating Document: CUONG REDD RESIDENT August 27, 2024 at 02:23 Date of Discharge: August 29, 2024 Admitting Diagnosis Dizziness Labs/Diagnostic Data: Laboratory Results Test 08/28/24 06:51 08/27/24 10:00 08/27/24 08:12 08/27/24 04:20 White Blood Count 6.9 10^3/uL (4.4-10.8) Red Blood Count 4.16 10^6/uL (4.0-5.20) Hemoglobin 13.3 g/dL (12.2-16.2) Hematocrit 38.8 % (36.0-46.0) Mean Corpuscular Volume 93.4 fL (80.0-100.0) Mean Corpuscular Hemoglobin 32.0 pg (28.0-32.0) Mean Corpuscular Hemoglobin Concent 34.3 g/dL (32.0-36.0) Red Cell Distribution Width 13.3 % (11.8-14.3) Platelet Count 181 10^3/uL (140-450) Mean Platelet Volume 8.8 fL (6.9-10.8) Neutrophils (%) (Auto) 72.4 % (37.0-80.0) Lymphocytes (%) (Auto) 21.1 % (10.0-50.0) Monocytes (%) (Auto) 4.4 % (0.0-12.0) Eosinophils (%) (Auto) 1.8 % (0.0-7.0) Basophils (%) (Auto) 0.3 % (0.0-2.0) Neutrophils # (Auto) 5.0 10 ^3/uL (1.6-8.6) Lymphocytes # (Auto) 1.5 10 ^3/uL (0.4-5.4) Monocytes # (Auto) 0.3 10 ^3/uL (0-1.3) Eosinophils # (Auto) 0.1 10 ^3/uL (0-0.8) Basophils # (Auto) 0 10 ^3/uL (0-0.2) Nucleated Red Blood Cells 0.1 % Sodium Level 140 mmol/L (136-145) Potassium Level 3.7 mmol/L (3.5-5.1) Chloride Level 109 mmol/L (98-107) Carbon Dioxide Level 22 mmol/L (20-31) Anion Gap 9 (5-15) Blood Urea Nitrogen 11 mg/dL (9-23) Creatinine 0.45 mg/dL (0.550-1.02) Glomerular Filtration Rate Calc 93 mL/min (>90) BUN/Creatinine Ratio 24.4 (10.0-20.0) Serum Glucose 98 mg/dL (74-106) Calcium Level 9.4 mg/dL (8.7-10.4) Total Bilirubin 0.8 mg/dL (0.2-1.0) Aspartate Amino Transferase (AST) 13 U/L (13-40) Alanine Aminotransferase (ALT) 9 U/L (7-40) Alkaline Phosphatase 60 U/L (46-116) Total Protein 5.7 g/dL (5.7-8.2) Albumin 3.4 g/dL (3.2-4.8) Urine Color Light-yellow (Yellow) Urine Clarity Clear (Clear) Urine pH 5.5 (5.0-9.0) Urine Specific [place] 1.025 (1.001-1.035) Urine Protein Negative (Negative) Urine Ketones Negative (Negative) Urine Blood Negative /uL (Negative) Urine Nitrite Negative (Negative) Urine Bilirubin Negative (Negative) Urine Urobilinogen Normal mg/dL (Negative) Urine Leukocyte Esterase Negative /uL (Negative) Urine RBC 1 /hpf (0 - 4) Urine Microscopic WBC 2 /HPF (0-5) Urine Squamous Epithelial Cells Few /hpf (<5) Urine Bacteria None seen /hpf (None Seen) Urine Glucose Normal mg/dL (Normal) Urine Opiates Screen Neg (NEGATIVE) Urine Fentanyl Screen Neg (NEGATIVE) Urine Barbiturates Screen Neg (NEGATIVE) Urine Phencyclidine Screen Neg (NEGATIVE) Urine Amphetamines Screen Neg (NEGATIVE) Urine Benzodiazepines Screen Neg (NEGATIVE) Urine Cocaine Screen Neg (NEGATIVE) Urine Cannabinoids Screen Neg (NEGATIVE) Magnesium Level 1.9 mg/dL (1.6-2.6) Influenza Type A Antigen Negative (Negative) Influenza Type B Antigen Negative (Negative) SARS-CoV-2 Antigen (Rapid) Negative (NEGATIVE) Test 08/26/24 23:50 08/26/24 23:28 Hemoglobin A1c 5.5 % A1C (<5.7) Troponin I High Sensitivity 26 ng/L (</=34) B-Type Natriuretic Peptide 570.42 pg/mL (0-100) Vitamin B12 Level 371 pg/mL (211-911) Folic Acid 6.72 ng/mL (>5.38) Thyroid Stimulating Hormone (TSH) 1.39 uIU/mL (0.55-4.78) POC Glucose 147 mg/dl (70-106) Other Laboratory Tests 08/28/24 06:51 Brief Hx & Hospital Course: Jenifer Kaye a 89 years old female with a PMH of HTN presented to the ED with the complaints of ongoing dizziness for past 2 months. As per patient and her grandson patient has been having dizzy for last 1 month but which got worse for last almost 7 days. Dizziness is worsened when moving around or walking around. Dizziness was associated with a headache, 10/10, pulsatile in nature. Patient required hospital admission for further evaluation and management of dizziness. The continuously monitored on telemetry unit. Patient found to have hypertensive urgency or uncontrolled hypertension, continuously monitor blood pressure. Head CT showed no acute changes, ordered MRI which showed chronic ischemic changes and atrophy. Orthostatic vitals weakly positive. Carotid Doppler showed no hemodynamic significant stenosis. Patient was on meclizine, prochlorperazine as needed. EKG showed no acute changes. Patient found to have dehydration, started on IVF. Physical therapy was on board. Patient found to have diastolic dysfunction, continuously monitored fluids. Patient condition was improved, hemodynamically stable and in condition to be discharged home with optimal medical treatment Aspirin 81 mg p.o. daily, atorvastatin 40 mg p.o. daily and meclizine 25 mg p.o. twice daily as needed for 10 days. Patient was advised to stay hydrated and enough oral intake. Patient was counseled regarding fall precautions. Patient was advised about healthy lifestyle modifications including diet and follow up with PCP after the discharge. Pt is lying on bed General Appearance: Alert, Oriented X3, Cooperative, Not in acute distress HEENT: Atraumatic, Mucous membranes moist/pink Respiratory: Clear to auscultation, Normal air movement, No added sounds Cardiovascular: Regular rate, Normal S1, Normal S2, No murmurs Abdominal: Active bowel sounds, Soft, no distention, no tenderness Extremities: No edema, Normal pulses, No tenderness/swelling Skin: No Significant rash, except past surgical scars Neuro: Normal speech, sensorimotor deficits none Psych/Mental Status: Mental status NL, Mood NL Nurse was there as duanene during examination Operations or Procedures Carotid Duplex IMPRESSION: No hemodynamically significant stenosis noted in the right carotid system. No hemodynamically significant stenosis noted in the left carotid system. CHEST RADIOGRAPH IMPRESSION: Moderate cardiomegaly. CT HEAD WITHOUT CONTRAST IMPRESSION: No acute intracranial abnormality identified. MRI BRAIN HEAD WO CONTRAST IMPRESSION: 1. Questionable punctate focus of restricted diffusion in the right occipital cortex. A tiny infarct is not excluded. Clinical correlation and continued follow-up is recommended. 2. Moderate cerebral atrophy with a frontotemporal distribution similar to prior exams. Bifrontal extra-axial fluid collections measuring up to 15 mm on the right and 13 mm on the left unchanged. 3. Moderate changes of chronic microvascular ischemic disease with involvement of the song. 4. Few scattered foci blooming artifact, could be due to microangiopathy. Clinical correlation and continued follow-up is recommended. SEVERE LVH AND MODERATE DEGREE LV DIASTOLIC DYSFUNCTION MODERATELY DILATED LA LV EF IS 65% AND IS NORMAL VERY HEAVILY CALCIFIED POSTERIOR MITRAL LEAFLET WITH DECREASED EXCURSION VERY HEAVILY CALCIFIED AORTIC LEAFLETS SIGNIFICANTLY DECREASED EXCURSION OF AORTIC LEAFLETS PEAK AORTIC GRADIENT IS 136 MM OF HG AND MEAN GRADIENT IS 82 MM OF HG IT S CRITICAL AORTIC STENOSIS NO EFFUSION Condition at Discharge: Stable Final Diagnosis/Problems List # Dizziness likely poly pharmacy vs dehydration # Orthostatic hypotension # Chronic CVA # Diastolic CHF with a exacerbation # uncontrolled hypertension/ hypertensive urgency Discharge Disposition: Home Discharge Instruct/Medications Diet: Consistent carbohydrate, Cardiac 2g Na,low cholest Activity: No Restrictions, As Tolerated Follow Up/Referral: PCP and Cardiology after the discharge Medications: Meclizine 2 times daily as needed Discharge Statement: "Patient was advised to return to the ER or call 911 if any headaches, dizziness, shortness of breath, chest pain, abdominal pain, bleeding, fevers, or worsening of medical condition. Patient was counseled about treatment plan, medications, possible side effects, patientverbalized understanding. All questions were answered to the best of my ability. This discharge took greater then 30 minutes in planning, reviewing documentation, counseling the patient, and discussing with other team members." ASSESSMENT ASSESSMENT Assessment # Dizziness likely poly pharmacy vs dehydration # Orthostatic hypotension # Chronic CVA # Diastolic CHF with a exacerbation # uncontrolled hypertension/ hypertensive urgency CUONG REDD RESIDENT August 29, 2024 13:53
== END 2024-08-29 14:35 | disposition home or self-care (01) | DRG 641 ==
LOC: ER 22:36 → OVERFLOW 08-27 02:23 → TELE-WESTW 08-27 11:22
PROVIDERS: ADMIT Student in an Organized Health Care Education/Training Program; ATTEND Emergency Medicine
DX: E86.0 Dehydration (principal); I50.32 Chronic diastolic (congestive) heart failure; I11.0 Hypertensive heart disease with heart failure; I16.0 Hypertensive urgency; Z20.822 Contact with and (suspected) exposure to COVID-19; E66.9 Obesity, unspecified; I95.1 Orthostatic hypotension; Z79.899 Other long term (current) drug therapy; Z68.34 Body mass index [BMI] 34.0-34.9, adult
CPT/HCPCS: 36415; 70450; 70551; 71045; 80053; 80307; 81001; 82607; 82746; 82962; 83036; 83735; 83880; 84443; 84484; 85025; 87426; 87804; 93005; 93306; 93886; G0378; J0131

== ENCOUNTER 2025-03-25 14:29 | Inpatient (IN) | payer MEDICARE, MEDICAID ==
[~2025-03-25] VITALS: Ht 160 cm; Wt 60.6 kg
[~2025-03-25 14:29] MED LIST changes: +ASPI-325 PO; +ATOR20TA50 PO; +MECL-90 PO
--- NOTE | 2025-03-25 14:51 | ED.PDOC ---
HPI (NEURO) HPI Comments 89-year-old female presents here with dizziness and headache x3 days. Patient has a known history of aortic stenosis and was sent here by her PCP aortic stenosis evaluated for metabolic changes versus infection. Patient states it feels like room spinning sensation. No change with movement of her head left to right. Denies any dysuria. No cough cold runny nose. No fevers no chills. No vomiting no diarrhea. Patient took lisinopril at home for blood pressures. Patient also has meclizine at home and states it did help her dizziness. Patient at this time is asymptomatic. Currently has no dizziness or headache and feels well. Denies any weakness to 1 arm or 1 leg. No facial droop no slurred speech. Denies being the worst headache of her life. Chief Complaint: Dizziness Time Seen by MD: 14:48 Primary Care Provider: SHYANN Mode of Arrival: Ambulatory Past Medical History PAST MEDICAL HISTORY: HTN Surgical History: Denies all surgeries CHEESEMAKER HELPER History: No Pertinent CHEESEMAKER HELPER History Family History Family History: Reviewed,noncontributory to illness Social History Smoker: Non-Smoker Alcohol: Denies ETOH Use Drugs: Denies Drug Use Lives In: Home All Other Systems: Reviewed and Negative Physical Exam General Appearance: No Apparent Distress, Normal HEENT: Normal ENT Inspection, Pharynx Normal, TMs Normal Neck: Full Range of Motion, Non-Tender, Normal, Normal Inspection Respiratory: Chest Non-Tender, Lungs Clear, No Accessory Muscle Use, No Respiratory Distress, Normal Breath Sounds Cardiovascular: No Edema, No JVD, No Murmur, No Gallop, Normal Peripheral Pulses, Regular Rate/Rhythm Breast Exam: Deferred Gastrointestinal: No Organomegaly, Non Tender, No Pulsatile Mass, Normal Bowel Sounds, Soft Genitalia: Deferred Pelvic: Deferred Rectal: Deferred Extremities: No calf tenderness, Normal capillary refill, Normal inspection, Normal range of motion, Non-tender, No pedal edema Musculoskeletal : Apperance: Normal Neurologic: Alert, No Motor Deficits, Normal Affect, Normal Mood, No Sensory Deficits Cerebellar Function: Normal Reflexes: Normal Skin: Dry, Normal Color, Warm Lymphatic: No Adenopathy EKG EKG : Comments Rate of 90 sinus rhythm right bundle-branch block left anterior fascicular block nonspecific ST changes. Inverted T-waves in V2 V3 V4 V5 Was a procedure done? Was a procedure done?: No Differential Diagnosis (SZ) Seizure: Other CVA: Other General Weakness: Other (Aortic stenosis, vertigo, dehydration, UTI) Headache: Other X-Ray, Labs, Meds, VS Vital Signs Date Time Temp Pulse Resp B/P (MAP) Pulse Ox O2 Delivery O2 Flow Rate FiO2 03/25/25 14:43 80 03/25/25 14:32 98.8 87 18 142/77 94 98.8 Lab Test 03/25/25 16:18 03/25/25 15:20 Range/Units Troponin I High Sensitivity 54 *H 55 *H </=34 ng/L White Blood Count 8.3 4.4-10.8 10^3/uL Red Blood Count 5.16 4.0-5.20 10^6/uL Hemoglobin 15.5 12.2-16.2 g/dL Hematocrit 46.9 H 36.0-46.0 % Mean Corpuscular Volume 90.9 80.0-100.0 fL Mean Corpuscular Hemoglobin 30.1 28.0-32.0 pg Mean Corpuscular Hemoglobin Concent 33.1 32.0-36.0 g/dL Red Cell Distribution Width 14.1 11.8-14.3 % Platelet Count 160 140-450 10^3/uL Mean Platelet Volume 9.3 6.9-10.8 fL Neutrophils (%) (Auto) 71.5 37.0-80.0 % Lymphocytes (%) (Auto) 22.0 10.0-50.0 % Monocytes (%) (Auto) 5.2 0.0-12.0 % Eosinophils (%) (Auto) 1.0 0.0-7.0 % Basophils (%) (Auto) 0.3 0.0-2.0 % Neutrophils # (Auto) 5.9 1.6-8.6 10 ^3/uL Lymphocytes # (Auto) 1.8 0.4-5.4 10 ^3/uL Monocytes # (Auto) 0.4 0-1.3 10 ^3/uL Eosinophils # (Auto) 0.1 0-0.8 10 ^3/uL Basophils # (Auto) 0 0-0.2 10 ^3/uL Nucleated Red Blood Cells 0.1 % Sodium Level 146 H 136-145 mmol/L Potassium Level 4.0 3.5-5.1 mmol/L Chloride Level 111 H 98-107 mmol/L Carbon Dioxide Level 25 20-31 mmol/L Anion Gap 10 5-15 Blood Urea Nitrogen 15 9-23 mg/dL Creatinine 0.93 0.550-1.02 mg/dL Glomerular Filtration Rate Calc 59 >90 mL/min BUN/Creatinine Ratio 16.1 10.0-20.0 Serum Glucose 153 H 74-106 mg/dL Calcium Level 9.1 8.7-10.4 mg/dL 89-year-old female here with 3 days of dizziness. Patient states she reports a room spinning sensation. She did take meclizine today and currently she currently has no dizziness or headache. The did see her PCP Dr. Nascimento earlier today we advised him to come to the ER for evaluation. At this time of ordered a CBC BMP, troponin EKG chest x-ray and urinalysis. At this time CBC unremarkable. CMP unremarkable. Urine is still pending. Patient states that she is able to urinate but does not want to wait for the results. I advised her I will call her tomorrow with the results. T troponin was 55 and went up to 56. At this time based upon Dr. Nascimento he did want evaluation of her aortic stenosis. However patient does not want to be admitted. I suspect that her current symptoms were likely secondary to vertigo. CT scan of the brain has been done which is unremarkable. At this time I have discharging the patient home. Advised her to return back to the ER if symptoms worsen or persist.. Time of 1ST Reevaluation: 15:07 Reevaluation 1ST: Improved Patient Education/Counseling: Diagnosis, Treatment Family Education/Counseling: Diagnosis, Treatment Departure 1 Departure Time of Disposition: 18:38 Impression: Primary Impression: Dizziness Disposition: 01 HOME / SELF CARE / HOMELESS Condition: Fair Additional Instructions: Follow up with the primary care physician in 2-3 days. Return to the ER if symptoms worsen or persist Critical Care Note Critical Care Time?: No Stability Stability form required: No Heart Score Heart Score: Heart Score Response (Comments) Value History N/A 0 EKG N/A 0 Age N/A 0 Risk Factors N/A 0 Troponin N/A 0 Total 0 MODESTO COURTNEY MD Mar 25, 2025 14:51
[2025-03-25 15:32] LABS: Hematocrit 46.9 % (36.0-46.0); Hemoglobin 15.5 g/dL (12.2-16.2); Mean Corpuscular Hemoglobin 30.1 pg (28.0-32.0); Mean Corpuscular Volume 90.9 fL (80.0-100.0); Nucleated Red Blood Cells % 0.1 %
[2025-03-25 15:35] LABS: Potassium 4.0 mmol/L (3.5-5.1)
[2025-03-25 15:36] LABS: Anion Gap 10 (5-15); Calcium 9.1 mg/dL (8.7-10.4); Carbon Dioxide 25 mmol/L (20-31)
[2025-03-25 15:37] LABS: Chloride 111 mmol/L (98-107); Sodium 146 mmol/L (136-145)
[2025-03-25 15:41] LABS: BUN/Creatinine Ratio 16.1 (10.0-20.0); Blood Urea Nitrogen 15 mg/dL (9-23); Glucose 153 mg/dL (74-106)
--- NOTE | 2025-03-25 16:37 | DVH ---
EXAM: CT HEAD WITHOUT CONTRAST HISTORY: dizziness COMPARISON: CT HEAD WITHOUT CONTRAST on DOS: 08/26/24, HEAD WITHOUT CONTRAST on DOS: 11/12/21 TECHNIQUE: Noncontrast axial CT images of the head were performed. Sagittal and coronal reformatted images were obtained. This CT exam was performed using 1 or more of the following dose reduction techniques: Automated exposure control, adjustment of the mA and/or kv according to patient size, or the use of iterative reconstruction techniques. Radiation Dose: CTDI volume is 51.02 mGy. Dose-length product is 965.66 mGy*cm FINDINGS: There is global brain atrophy with prominence of the extra-axial CSF. There is moderate decreased attenuation in the periventricular white matter. There are old lacunar infarcts of the bilateral thalami, bilateral basal ganglia, left frontal white matter, and bilateral cerebellar hemispheres. The sella is empty. No intracranial hemorrhage, mass, midline shift, hydrocephalus, or evidence of acute large vessel infarct. There is a mucous retention cyst in the right maxillary sinus. There are degenerative changes of the bilateral temporomandibular joints. The bilateral mastoid air cells and middle ear spaces are clear. 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 No cranial fracture or scalp edema. IMPRESSION: 1. Global brain atrophy and chronic ischemic changes without evidence of acute intracranial process. 2. Empty sella. 3. Mild right maxillary sinus disease.
[2025-03-25 19:26] LABS: Urine Protein, UAD TRACE (Negative)
--- NOTE | 2025-03-25 20:53 | DVHHPRES ---
History of Present Illness Resident Creating Document: CIERRA AC History of Present Illness Ms Indu Kaye, an 89-year-old female with a past medical history of hypertension, tremor (unknown cause), aortic stenosis presented to the ER, accompanied by granddaughter, presented to the ER with the complaints of dizziness since last 3 days. Today they went to the family doctor's office and was found to have aortic stenosis, the family doctor advised them to visit ER. She denies any chest pain, shortness of breath, fever, urinary symptoms or any other complaints. She takes lisinopril as antihypertensive. Past medical history: As above Past surgical history: None Allergies: None Home medications: Meclizine, lisinopril Smoking, alcohol, drugs: None Code status: Full code Review of Systems Neurological: Other (Dizziness) Allergies: Coded Allergies: NO KNOWN ALLERGIES (Unverified , 12/07/18) Exam Vital Signs Vital Signs Date Time Temp Pulse Resp B/P (MAP) Pulse Ox O2 Delivery O2 Flow Rate FiO2 03/25/25 14:43 80 03/25/25 14:32 98.8 18 142/77 94 98.8 Exam Pt is lying on bed General Appearance: Alert, Oriented X3, Cooperative, Mild distress HEENT: Atraumatic, Mucous membranes moist/pink Respiratory: Clear to auscultation, Normal air movement, No added sounds Cardiovascular: Regular rate, Normal S1, Normal S2, No murmurs Abdominal/ : Active bowel sounds, Soft, no distention, no tenderness Extremities: No edema, Normal pulses, No tenderness/swelling Skin: No Significant rash, except past surgical scars Neuro: Normal speech, sensorimotor deficits none Psych/Mental Status: Mental status NL, Mood NL Nurse was there as hand welt butter during examination Labs/Xrays Labs Test 03/25/25 20:33 03/25/25 18:03 03/25/25 15:20 Range/Units Urine Color Yellow Yellow Urine Clarity Turbid H Clear Urine pH 5.5 5.0-9.0 Urine Specific [place] 1.023 1.001-1.035 Urine Protein Trace H Negative Urine Ketones Trace Negative Urine Blood Negative Negative /uL Urine Nitrite 2+ H Negative Urine Bilirubin Negative Negative Urine Urobilinogen Normal Negative mg/dL Urine Leukocyte Esterase 3+ Negative /uL Urine RBC 3 0 - 4 /hpf Urine Microscopic WBC 103 H 0-5 /HPF Urine Squamous Epithelial Cells Few <5 /hpf Urine Bacteria Few H None Seen /hpf Urine Mucus Few None Seen Urine Glucose Normal Normal mg/dL White Blood Count 8.3 4.4-10.8 10^3/uL Red Blood Count 5.16 4.0-5.20 10^6/uL Hemoglobin 15.5 12.2-16.2 g/dL Hematocrit 46.9 H 36.0-46.0 % Mean Corpuscular Volume 90.9 80.0-100.0 fL Mean Corpuscular Hemoglobin 30.1 28.0-32.0 pg Mean Corpuscular Hemoglobin Concent 33.1 32.0-36.0 g/dL Red Cell Distribution Width 14.1 11.8-14.3 % Platelet Count 160 140-450 10^3/uL Mean Platelet Volume 9.3 6.9-10.8 fL Neutrophils (%) (Auto) 71.5 37.0-80.0 % Lymphocytes (%) (Auto) 22.0 10.0-50.0 % Monocytes (%) (Auto) 5.2 0.0-12.0 % Eosinophils (%) (Auto) 1.0 0.0-7.0 % Basophils (%) (Auto) 0.3 0.0-2.0 % Neutrophils # (Auto) 5.9 1.6-8.6 10 ^3/uL Lymphocytes # (Auto) 1.8 0.4-5.4 10 ^3/uL Monocytes # (Auto) 0.4 0-1.3 10 ^3/uL Eosinophils # (Auto) 0.1 0-0.8 10 ^3/uL Basophils # (Auto) 0 0-0.2 10 ^3/uL Nucleated Red Blood Cells 0.1 % Sodium Level 146 H 136-145 mmol/L Potassium Level 4.0 3.5-5.1 mmol/L Chloride Level 111 H 98-107 mmol/L Carbon Dioxide Level 25 20-31 mmol/L Anion Gap 10 5-15 Blood Urea Nitrogen 15 9-23 mg/dL Creatinine 0.93 0.550-1.02 mg/dL Glomerular Filtration Rate Calc 59 >90 mL/min BUN/Creatinine Ratio 16.1 10.0-20.0 Serum Glucose 153 H 74-106 mg/dL Calcium Level 9.1 8.7-10.4 mg/dL SEPSIS Sepsis Screen Date sepsis recognized/suspect: Mar 25, 2025 Time Sepsis recognized/suspect: 1434 Recent Procedure: No On Antibiotic Therapy: No Respiratory Rate >20: No Heart Rate >90: No Temp<36 C (96.8 F) or >38.3 C: No SBP <90 or MAP <65 mmHG: No New Acute Mental Status Change: No Is the patient on CPAP, BIPAP,: No Physician Orders Electrocardigram (03/25/25 14:36) Head Without Contrast (03/25/25 15:08) Electrocardigram (03/25/25 20:02) Troponin-I Hs (03/25/25 20:04) Admit (03/25/25 20:49) Allergies (03/25/25 20:49) Code Status (03/25/25 20:49) Complete Blood Count (03/26/25 04:00) Comprehensive Metabolic Panel (03/26/25 04:00) Cardiac Diet-2gna,Lofat,Lochol (03/26/25 Breakfast) Echo 2d Mode Cardiac Dop (03/25/25 20:49) Carotid Duplx W Color Dop (03/25/25 20:49) Acetaminophen Tablet (Tylenol Tablet) (03/25/25 21:00) Sequential Compression Device (03/25/25 ) Oxygen By Nasal Cannula (03/25/25 20:49) Stat Ekg For Chest Pain (03/25/25 20:49) Notify Md Of Changes From Base (03/25/25 20:49) Supervisor Engine Repair For 24 Hours (03/25/25 20:49) Emergency Dysrhythmia Protocol (03/25/25 20:49) Rhythm Strips Once Every Shift (03/25/25 20:49) Vital Signs Date Time Temp Pulse Resp B/P (MAP) Pulse Ox O2 Delivery O2 Flow Rate FiO2 03/25/25 14:43 80 03/25/25 14:32 98.8 87 18 142/77 94 98.8 Laboratory Tests Test 03/25/25 15:20 White Blood Count 8.3 10^3/uL (4.4-10.8) Assessment/Plan Assessment/Plan Presyncope likely due to aortic stenosis Left ventricular hypertrophy secondary to aortic stenosis or hypertension Carotid ultrasound: No significant stenosis Echocardiography in Aug, 2024: Critical for aortic stenosis Severe LVH, moderate LV diastolic dysfunction LV ejection fraction 65% and normal Moderately dilated LA Very heavily calcified posterior mitral leaflet with decreased excursion Very heavily calcified aortic leaflets Significantly decreased excursion of aortic leaflets Peak aortic gradient is 136 mm of mercury and mean gradient is 82 mm of mercury Previous CTA head in August: Negative MRI head in August: Could be tiny infarct, cerebral atrophy, chronic microvascular disease, microangiopathy Cardiology consultation done Hypertensive heart disease NSTEMI type 2 EKG: LVH with no acute ischemic changes Chest radiography in Aug, 2024: Cardiomegaly Troponin levels are stable could be due to chronic myocardial injury or supply demand mismatch Continue home medication lisinopril Acute complicated UTI IV ceftriaxone daily Hypernatremia IV fluid Continue lab monitoring GI prophylaxis: Pantoprazole DVT prophylaxis: SCDs Diet: Cardiac Goals of care discussed with the patient for more than 27 minutes: Full code status Case discussed with Dr. Quinones, patient and RN Plan discussed with: Patient, Other My Orders Orders - OSORIO,CIERRA RESIDENT Procedure Category Date Status Time Admit ADMIT 03/25/25 Verified 20:49 Allergies [facility] 03/25/25 Verified 20:49 Code Status CODE 03/25/25 Verified 20:49 Complete Blood Count LAB 03/26/25 Verified 04:00 Comprehensive LAB 03/26/25 Verified Metabolic Panel 04:00 Cardiac DIET 03/26/25 Verified Diet-2gna,Lofat,Lochol Breakfast Echo 2d Mode Cardiac US 03/25/25 Verified DOP 20:49 Carotid Duplx W Color US 03/25/25 Verified DOP 20:49 Acetaminophen Tablet PHA 03/25/25 Verified (Tylenol Tablet) 21:00 Sequential JOSIAS 03/25/25 Verified Compression Device Oxygen By Nasal RT 03/25/25 Verified Cannula 20:49 Stat Ekg For Chest [facility] 03/25/25 Verified Pain 20:49 Notify Md Of Changes [facility] 03/25/25 Verified From Base 20:49 Supervisor Engine Repair For [facility] 03/25/25 Verified 24 Hours 20:49 Emergency Dysrhythmia [facility] 03/25/25 Verified Protocol 20:49 Rhythm Strips Once [facility] 03/25/25 Verified Every Shift 20:49 Visit Coding STANDARD RES Billing Provider: MILLIE QUINONES MD Date of Service if different f: Mar 25, 2025 CIERRA AC RESIDENT Mar 25, 2025 20:53 BIBI LEVINE RESIDENT Mar 26, 2025 03:28
--- NOTE | 2025-03-25 21:52 | DVH ---
CLINICAL HISTORY: Syncope TECHNIQUE: Caballero-scale, Color and Duplex Doppler imaging of the bilateral carotid systems was performed. WID: COMPARISON: US CAROTID DUPLX W COLOR DOP on DOS: 08/27/24 Findings: Highly tortuous bilateral internal carotid arteries. Right Carotid system: There is eccentric calcific plaque within the right distal common carotid artery extending into the carotid bulb Left Carotid system: No significant plaque. The right and left common carotid and external carotid arteries are patent. There is antegrade flow in both vertebral arteries and external carotid arteries. The following flow velocities were obtained (cm/sec). Right Carotid System: Common carotid velocity of 27 ICA PSV: Peak Systolic Velocity 59 ICA/CCA Ratio: ICA/CCA Ratio 2.2 Left Carotid System: Common carotid velocity of 29 ICA PSV: Peak Systolic Velocity 60 ICA/CCA Ratio: ICA/CCA Ratio 2.0 IMPRESSION: Right carotid bulb/ proximal internal carotid artery plaque with less than 50% stenosis Estimation of carotid stenosis is based on velocity parameters that correlate the residual internal carotid diameter with that of the more distal vessel in accordance with the [place] Symptomatic Carotid Endarterectomy Trial (NASCET).
[2025-03-25] MEDS: ATORVASTATIN 20 MG TAB PO SCH (22:23)
[2025-03-25 22:49] VITALS: BP 140/93; PULSE 67; RESP 15; TEMP 98; O2SAT 94
[2025-03-25 22:51] VITALS: PULSE 68
[2025-03-26] VITALS (8 sets, daily range): BP systolic 109–166; BP diastolic 48–100; PULSE 52–85; RESP 15–80; TEMP 97.1–98.7; O2SAT 92–97
--- NOTE | 2025-03-26 00:37 | ECG ---
[facility] Test Date: 2025-03-26 Test Time: 00:05:35 Pat Name: VIANNEY HENDERSON Department: Room: 0290T A Gender: F Rn Training: XIANG : 1935 Requested By: CIERRA AC Order Number: [id number] Reading MD: Rg Cordero Measurements Intervals [place] Rate: 62 P: 12 WI: 167 QRS: -76 QRSD: 145 T: 106 QT: 453 QTc: 460 Interpretive Statements Sinus rhythm Probable left atrial enlargement RBBB and LAFB Consider left ventricular hypertrophy Abnrm T, consider ischemia, anterolateral lds Electronically Signed On 03-31-2025 18:20:24 PST by Rg Cordero Please click the below link to view image of tracing.
[2025-03-26 06:56] LABS: Hematocrit 42.7 % (36.0-46.0); Hemoglobin 14.1 g/dL (12.2-16.2); Mean Corpuscular Hemoglobin 30.1 pg (28.0-32.0); Mean Corpuscular Volume 90.8 fL (80.0-100.0); Nucleated Red Blood Cells % 0.1 %
--- NOTE | 2025-03-26 07:02 | DVH ---
CHEST RADIOGRAPH Indication: sob Technique: Single frontal view of the chest was obtained COMPARISON: XY CHEST XRAY 1 VIEW on DOS: 08/27/24 FINDINGS: Lines and Tubes: None Lungs: Clear. The patient is slightly rotated to the left. Pleura: No effusion. No pneumothorax. Cardiomediastinal contours: Cardiomegaly. Bones: Unremarkable IMPRESSION: 1. Cardiomegaly.
[2025-03-26 07:12] LABS: Alanine Aminotransferase 12 U/L (7-40); Albumin 3.5 g/dL (3.2-4.8); Alkaline Phosphatase 61 U/L (46-116); Anion Gap 11 (5-15); BUN/Creatinine Ratio 27.1 (10.0-20.0); Bilirubin, Total 0.7 mg/dL (0.2-1.0); Blood Urea Nitrogen 16 mg/dL (9-23); Calcium 9.1 mg/dL (8.7-10.4); Carbon Dioxide 23 mmol/L (20-31); Glucose 95 mg/dL (74-106); Potassium 3.9 mmol/L (3.5-5.1); Total Protein 6.1 g/dL (5.7-8.2)
[2025-03-26 07:17] LABS: Chloride 112 mmol/L (98-107); Sodium 146 mmol/L (136-145)
[2025-03-26] MEDS: LISINOPRIL 5 MG TAB PO SCH (10:21)
[2025-03-26] MEDS: ASPirin-EC 81 mg tab PO SCH (10:21)
--- NOTE | 2025-03-26 14:36 | DVHPN2 ---
Subjective Seen in bed and feeling well with no sob Reviewed: H&P Changes from previous H/P or p: No Changes Objective Vitals Vital Signs Date Time Temp Pulse Resp B/P (MAP) Pulse Ox O2 Delivery O2 Flow Rate FiO2 03/26/25 13:00 98.6 72 80 166/100 (122) 97 98.6 03/26/25 08:05 Room Air* 0 21 Intake/Output Intake and Output 03/26/25 07:00 Intake Total 0 ml Output Total 200 ml Balance -200 ml Intake Oral 0 ml Output Urine Total 200 ml General Appearance: Alert, Oriented X3 HEENT: Atraumatic Cardiovascular: Regular rate, Normal S1, Normal S2 Abdomen: Normal bowel sounds Medications Current Medications Medications Dose Ordered Sig/Aidee Route Start Time Stop Time Status Last Admin Dose Admin Acetaminophen 650 mg Q6HP PRN PO 03/25/25 21:00 Aspirin 81 mg DAILY PO 03/26/25 10:00 03/26/25 10:21 81 MG Atorvastatin Calcium 40 mg HS PO 03/25/25 22:00 03/25/25 22:23 40 MG Lisinopril 2.5 mg DAILY PO 03/26/25 10:00 03/26/25 10:21 2.5 MG Ceftriaxone Sodium 50 ml @ 100 mls/hr DAILY@09 IV 03/26/25 09:00 03/26/25 10:22 100 MLS/HR Laboratory Results Laboratory Tests 03/26/25 05:00 Chemistry Test 03/25/25 15:20 03/26/25 05:00 Calcium Level 9.1 mg/dL (8.7-10.4) 9.1 mg/dL (8.7-10.4) Albumin 3.5 g/dL (3.2-4.8) Total Protein 6.1 g/dL (5.7-8.2) Cardiac Markers Test 03/25/25 15:20 B-Type Natriuretic Peptide 948.80 pg/mL (0-100) LFT Test 03/26/25 05:00 Alanine Aminotransferase (ALT) 12 U/L (7-40) Alkaline Phosphatase 61 U/L (46-116) Aspartate Amino Transferase (AST) 17 U/L (13-40) Total Bilirubin 0.7 mg/dL (0.2-1.0) HgA1c, TSH Test 03/25/25 15:20 Hemoglobin A1c 5.6 % A1C (<5.7) Thyroid Stimulating Hormone (TSH) 1.09 uIU/mL (0.55-4.78) Urinalysis Test 03/25/25 18:03 Urine Color Yellow (Yellow) Urine Clarity Turbid (Clear) H Urine pH 5.5 (5.0-9.0) Urine Specific [place] 1.023 (1.001-1.035) Urine Protein Trace (Negative) H Urine Ketones Trace (Negative) Urine Blood Negative /uL (Negative) Urine Nitrite 2+ (Negative) H Urine Bilirubin Negative (Negative) Urine Urobilinogen Normal mg/dL (Negative) Urine Leukocyte Esterase 3+ /uL (Negative) Urine RBC 3 /hpf (0 - 4) Urine Microscopic WBC 103 /HPF (0-5) H Urine Squamous Epithelial Cells Few /hpf (<5) Urine Bacteria Few /hpf (None Seen) H Urine Mucus Few (None Seen) Urine Glucose Normal mg/dL (Normal) Assessment/Plan Assessment/Plan Presyncope likely due to aortic stenosis Left ventricular hypertrophy secondary to aortic stenosis or hypertension Carotid ultrasound: No significant stenosis Echocardiography in Aug, 2024: Critical for aortic stenosis Severe LVH, moderate LV diastolic dysfunction LV ejection fraction 65% and normal Moderately dilated LA Very heavily calcified posterior mitral leaflet with decreased excursion Very heavily calcified aortic leaflets Significantly decreased excursion of aortic leaflets Peak aortic gradient is 136 mm of mercury and mean gradient is 82 mm of mercury Previous CTA head in August: Negative MRI head in August: Could be tiny infarct, cerebral atrophy, chronic microvascular disease, microangiopathy Cardiology consultation done Hypertensive heart disease NSTEMI type 2 EKG: LVH with no acute ischemic changes Chest radiography in Aug, 2024: Cardiomegaly Troponin levels are stable could be due to chronic myocardial injury or supply demand mismatch Continue home medication lisinopril Acute complicated UTI IV ceftriaxone daily Hypernatremia IV fluid Continue lab monitoring Plan discussed with: Patient Date of Service: Mar 26, 2025 Billing Provider: GAY QURESHI MD Common Visit Codes: [id number] INP/OBS CARE(HIGH) GAY QURESHI MD Mar 26, 2025 14:36
--- NOTE | 2025-03-26 15:40 | DVHINCON2 ---
Date Seen: Mar 26, 2025 Referring Physician Isabell Reason for Consultation Critical Aortic Stenosis History of Present Illness 89-year-old female with PMH for HTN, tremor, recently diagnosed critical aortic stenosis 08/2024 presents to the ER with dizziness and chest pressure. Patient states she was following up better PCP due to complaints of feeling lightheaded at times and having some intermittent chest pressure. Chest pressure noted to be sharp in nature, intermittent, left-sided, nonradiating, associated with some shortness of breath. Upon evaluation in the ER patient noted to have mildly elevated troponins trending 55, 54, 61. Patient showed to have critical aortic stenosis in August though has not follow up with Cardiology in the outpatient setting. Patient endorses that she was not quite aware of her condition and therefore did not know that she had to follow up with Cardiology. EKG reviewed, negative for acute ischemic changes. Past Medical History As stated above Past Surgical History No previous cardiac surgeries Family History: Patient reports no known family medical history. Family History Denies pertinent family cardiac history Social History Denies alcohol, tobacco, or illicit drug use Allergies: Coded Allergies: NO KNOWN ALLERGIES (Unverified , 12/07/18) Home Meds Active Scripts Atorvastatin Calcium (ATORVASTATIN CALCIUM) 20 Mg Tab, 40 MG PO HS for 30 Days, #30 TAB Prov:CUONG REDD 08/29/24 Aspirin (Aspirin Low Dose) 81 Mg Tab, 81 MG PO DAILY for 30 Days, #30 TAB Prov:CUONG REDD 08/29/24 Meclizine Hcl (Meclizine Hcl) 25 Mg Tab, 25 MG PO BIDPRN PRN for 10 Days, #20 TAB Prov:CUONG REDD 08/29/24 Nitrofurantoin Monohydrate Mac (Macrobid) 100 Mg Cap, 100 MG PO BID for 7 Days, #14 CAP Prov:FLOR LAYTON MD 11/12/21 Current Medications Current Medications Medications (Trade) Dose Ordered Sig/Aidee Route PRN Reason Start Time Stop Time Status Last Admin Acetaminophen (Tylenol Tablet) 650 mg Q6HP PRN PO PAIN SCALE 1-3 OR TEMP>100.4 03/25/25 21:00 Aspirin (Ecotrin Enteric Coated Tablet) 81 mg DAILY PO 03/26/25 10:00 03/26/25 10:21 Atorvastatin Calcium (Lipitor) 40 mg HS PO 12/5/25 22:00 03/25/25 22:23 Lisinopril (Zestril Tablet) 2.5 mg DAILY PO 03/26/25 10:00 03/26/25 10:21 Ceftriaxone Sodium 50 ml @ 100 mls/hr DAILY@09 IV 03/26/25 09:00 03/26/25 10:22 Review of Systems Constitutional: No: Fever, Chills, Sweats, Weakness, Malaise, Other Eyes: No: Pain, Vision change, Conjunctivae inflammation, Eyelid inflammation, Other, Redness ENT: No: Ear pain, Ear discharge, Nose pain, Nose discharge, Nose congestion, Mouth pain, Mouth swelling, Throat pain, Throat swelling, Other Respiratory: No: Cough, Dry, Shortness of breath, SOB with exertion, Wheezing, Hemoptysis, Pleuritic Pain, Sputum, Wheezing, Other Cardiovascular: ; No: Chest Pain Palpitations, Orthopnea, Paroxysmal Noc. Dyspnea, Edema, Lt Headedness, Other Gastrointestinal: No: Nausea, Vomiting, Abdominal Pain, Diarrhea, Constipation, Melena, Hematochezia, Other Genitourinary: No Dysuria, No Frequency, No Incontinence, No Hematuria, No Retention, No Other Musculoskeletal: neck pain; No: other, shoulder pain, arm pain, back pain, hand pain, leg pain, foot pain Skin: No: Rash, Lesions, Jaundice, Bruising, Other Neurological: Other (Dizziness, headache.); No: Weakness, Numbness, Incoordination, Change in speech, Confusion, Seizures Vital Signs Vital Signs Date Time Temp Pulse Resp B/P (MAP) Pulse Ox O2 Delivery O2 Flow Rate FiO2 03/26/25 13:00 98.6 72 80 166/100 (122) 97 98.6 03/26/25 08:05 Room Air* 0 21 Physical Exam General appearance: Patient is well-developed, well-nourished, in no acute distress. HEENT: Exam shows: Normocephalic, atraumatic, PERRLA, EOMI Neck: Supple, no bruits Chest: Equal chest excursion bilaterally. Breath sounds normal-no rales or wheezes. Heart: Rhythm: Regular rate; murmur Abdomen: Exam shows: Soft, nontender, nondistended Musculoskeletal: No clubbing, no cyanosis, no lower extremity edema Dermatology: Skin warm, moist. Neurological: Exam shows: Alert and oriented x4, normal speech Available prior records, labs, EKG, rhythm strips reviewed and interpreted Labs/Diagnostic Data Labs Test 03/26/25 05:00 03/25/25 20:33 03/25/25 18:03 03/25/25 15:20 Range/Units White Blood Count 6.0 # 4.4-10.8 10^3/uL Red Blood Count 4.70 4.0-5.20 10^6/uL Hemoglobin 14.1 12.2-16.2 g/dL Hematocrit 42.7 36.0-46.0 % Mean Corpuscular Volume 90.8 80.0-100.0 fL Mean Corpuscular Hemoglobin 30.1 28.0-32.0 pg Mean Corpuscular Hemoglobin Concent 33.1 32.0-36.0 g/dL Red Cell Distribution Width 14.4 H 11.8-14.3 % Platelet Count 150 140-450 10^3/uL Mean Platelet Volume 9.9 6.9-10.8 fL Neutrophils (%) (Auto) 65.7 37.0-80.0 % Lymphocytes (%) (Auto) 25.3 10.0-50.0 % Monocytes (%) (Auto) 6.4 0.0-12.0 % Eosinophils (%) (Auto) 2.3 0.0-7.0 % Basophils (%) (Auto) 0.3 0.0-2.0 % Neutrophils # (Auto) 4.0 1.6-8.6 10 ^3/uL Lymphocytes # (Auto) 1.5 0.4-5.4 10 ^3/uL Monocytes # (Auto) 0.4 0-1.3 10 ^3/uL Eosinophils # (Auto) 0.1 0-0.8 10 ^3/uL Basophils # (Auto) 0 0-0.2 10 ^3/uL Nucleated Red Blood Cells 0.1 % Sodium Level 146 H 136-145 mmol/L Potassium Level 3.9 3.5-5.1 mmol/L Chloride Level 112 H 98-107 mmol/L Carbon Dioxide Level 23 20-31 mmol/L Anion Gap 11 5-15 Blood Urea Nitrogen 16 9-23 mg/dL Creatinine 0.59 # 0.550-1.02 mg/dL Glomerular Filtration Rate Calc 87 >90 mL/min BUN/Creatinine Ratio 27.1 H 10.0-20.0 Serum Glucose 95 74-106 mg/dL Calcium Level 9.1 8.7-10.4 mg/dL Total Bilirubin 0.7 0.2-1.0 mg/dL Aspartate Amino Transferase (AST) 17 13-40 U/L Alanine Aminotransferase (ALT) 12 7-40 U/L Alkaline Phosphatase 61 46-116 U/L Total Protein 6.1 5.7-8.2 g/dL Albumin 3.5 3.2-4.8 g/dL Troponin I High Sensitivity 61 *H </=34 ng/L Urine Color Yellow Yellow Urine Clarity Turbid H Clear Urine pH 5.5 5.0-9.0 Urine Specific [place] 1.023 1.001-1.035 Urine Protein Trace H Negative Urine Ketones Trace Negative Urine Blood Negative Negative /uL Urine Nitrite 2+ H Negative Urine Bilirubin Negative Negative Urine Urobilinogen Normal Negative mg/dL Urine Leukocyte Esterase 3+ Negative /uL Urine RBC 3 0 - 4 /hpf Urine Microscopic WBC 103 H 0-5 /HPF Urine Squamous Epithelial Cells Few <5 /hpf Urine Bacteria Few H None Seen /hpf Urine Mucus Few None Seen Urine Glucose Normal Normal mg/dL Hemoglobin A1c 5.6 <5.7 % A1C B-Type Natriuretic Peptide 948.80 0-100 pg/mL Vitamin B12 Level 409 211-911 pg/mL Vitamin D 25-Hydroxy 34.6 30.0-100 ng/mL Thyroid Stimulating Hormone (TSH) 1.09 0.55-4.78 uIU/mL Assessment * NSTEMI likely type 2 - continue aspirin and statin. Likely demand ischemia in setting of CHF/critical aortic stenosis. Continue blood pressure control. Plan of care discussed with the patient, patient to continue with outpatient cardiology follow up for TAVR workup. * Severe critical aortic stenosis - echocardiogram 08/2024 showing severe LVH with moderate degree LV diastolic dysfunction, heavily calcified posterior mitral leaflet, critical aortic stenosis with peak aortic gradient 136 mmHg and mean gradient of 82 mmHg. Diuresis to euvolemic. Continue on lisinopril for blood pressure control. Recommend outpatient follow up with Dr. Zamora at [facility] for TAVR workup. * Uncontrolled HTN - continue on current regimen, titrate as tolerated. * Acute on chronic HFpEF - p.r.n. Lasix as needed, 20 mg p.o. daily. Case Discussed with Dr. Zamora. Given known critical aortic stenosis, recommend continue with outpatient follow up for TAVR workup on outpatient basis. Plan of care discussed with patient, patient's granddaughter grandson and daughter with son-in-law at bedside in detail. All understand and agree with plan of care and understand that patient needs to follow up with Cardiology on outpatient basis. Recommend following up with Dr. Zamora at [facility] for continued workup. Critical care, time spent: 45 minutes This medical document was created using an electronic medical record system with voice recognition software and computerized dictation system. Although this document has been carefully reviewed, there might still be some phonetic and typographical errors. Occasional wrong-word or ``sound-alike substitutions may have occurred due to the inherent limitations of voice recognition software. These areas are purely typographical due to imperfections of the software programs and do not reflect any compromise in the patient's medical care. Please read the chart carefully and recognize, using context, where these substitutions have occurred. Thank you for allowing me to participate in the management of this patient. The treatment plan was discussed with and agreed upon by patient/family including requesting consultants and ordering of imaging/procedures. Plan discussed with: Patient, Daughter, Son, Other (Granddaughter) NYHA Physical activity limitations: Class3(Marked) ordinary Date of Service: Mar 26, 2025 Billing Provider: REKHA SALGUERO Cardiology Common Codes: [id number] INP/OBS CARE (High), [id number] CARE 30-74 MIN REKHA SALGUERO Mar 26, 2025 15:40
[2025-03-27 04:55] VITALS: BP 112/64; PULSE 66; RESP 18; TEMP 97.3; O2SAT 95
[2025-03-27 04:58] VITALS: BP 122/67; PULSE 57; RESP 17; TEMP 97.3; O2SAT 95
[2025-03-27 08:00] VITALS: PULSE 55
[2025-03-27] MEDS: ACETAMINOPHEN 325 MG TAB PO PRN (08:18)
[2025-03-27 09:00] VITALS: BP 150/97; PULSE 66; RESP 16; TEMP 98.1; O2SAT 95
[2025-03-27 12:01] VITALS: BP 150/97
--- NOTE | 2025-03-28 06:38 | ECG ---
[facility] Test Date: 2025-03-25 Test Time: 14:43:15 Pat Name: VIANNEY HENDERSON Department: Room: 0290T A Gender: F Vice President Of Compliance: SKYLER : 1935 Requested By: KITA MARTÍNEZ Order Number: [id number] Reading MD: Rg Cordero Measurements Intervals [place] Rate: 80 P: 61 VT: 159 QRS: -78 QRSD: 138 T: 95 QT: 401 QTc: 463 Interpretive Statements Sinus rhythm Probable left atrial enlargement RBBB and LAFB Consider left ventricular hypertrophy Nonspecific T abnormalities, lateral leads ST elevation, consider inferior injury Electronically Signed On 03-31-2025 19:00:20 PST by Rg Cordero Please click the below link to view image of tracing.
== END 2025-03-27 16:57 | disposition home or self-care (01) | DRG 280 ==
LOC: ER 14:29 → OVERFLOW 20:49 → TELE-WESTW 22:47
PROVIDERS: ATTEND Emergency Medicine
DX: I11.0 Hypertensive heart disease with heart failure (principal); I50.33 Acute on chronic diastolic (congestive) heart failure; I21.A1 Myocardial infarction type 2; E87.0 Hyperosmolality and hypernatremia; N39.0 Urinary tract infection, site not specified; I35.0 Nonrheumatic aortic (valve) stenosis; Z79.899 Other long term (current) drug therapy; Z79.82 Long term (current) use of aspirin
CPT/HCPCS: 36415; 70450; 71045; 80048; 80053; 81001; 82306; 82607; 83036; 83880; 84443; 84484; 85025; 87081; 87086; 93005; 93886; 96365; 96366; G0378